=== PATIENT | male | born 1990 | race Caucasian/White ===

== ENCOUNTER 2018-10-27 11:25 | Emergency (ER) | payer BC ==
[2018-10-27] MEDS ORDERED: TRAZODONE50 MG PO (11:35)
[2018-10-27] MEDS ORDERED: WELLBUTRIN SR150 MG PO (11:35)
[2018-10-27] MEDS ORDERED: BENAZEPRIL5 MG PO (11:35)
[2018-10-27] MEDS ORDERED: BENAZEPRIL40 M1 PO (12:05)
[2018-10-27] MEDS ORDERED: BUPROPION HCL300 MG PO (12:06)
[2018-10-27] MEDS ORDERED: TRAMADOL HYDROC50 MG PO (12:27)
[2018-10-27] MEDS ORDERED: MEDDOSEPAK PO (12:27)
[2018-10-27 12:30] VITALS: BP 175/98
== END 2018-10-27 12:32 | disposition home or self-care (01) | DRG 558 ==
LOC: ED 11:25
DX: M72.2 Plantar fascial fibromatosis (principal); I10 Essential (primary) hypertension

== ENCOUNTER 2019-08-16 19:32 | Emergency (ER) | payer MEDICAID ==
[~2019-08-16] VITALS: Ht 177.8 cm; Wt 183.6 kg
[~2019-08-16 19:32] MED LIST: BENAZEPRIL40 M1 PO; BENAZEPRIL5 MG PO; BUPROPION HCL300 MG PO; MEDDOSEPAK PO; TRAMADOL HYDROC50 MG PO; TRAZODONE50 MG PO; WELLBUTRIN SR150 MG PO
[2019-08-16] MEDS ORDERED: HYDROCHLOROT12.5 MG PO (20:37)
[2019-08-16] MEDS ORDERED: VOLTAREN - GENE75 MG PO (21:55)
[2019-08-16 22:17] VITALS: BP 144/79
== END 2019-08-16 22:17 | disposition home or self-care (01) | DRG 552 ==
LOC: ED 19:32
DX: M54.5 Low back pain (principal); G57.12 Meralgia paresthetica, left lower limb; I10 Essential (primary) hypertension

== ENCOUNTER 2019-08-30 14:24 | Emergency (ER) | payer MEDICAID ==
[~2019-08-30] VITALS: Ht 177.8 cm; Wt 182.0 kg
[~2019-08-30 14:24] MED LIST changes: +HYDROCHLOROT12.5 MG PO; +VOLTAREN - GENE75 MG PO
[2019-08-30] MEDS ORDERED: FLEXERIL PO (16:38)
[2019-08-30] MEDS ORDERED: NAPROXEN500 MG PO (16:38)
[2019-08-30 16:58] VITALS: BP 159/88
== END 2019-08-30 17:09 | disposition home or self-care (01) | DRG 552 ==
LOC: ED 14:24
DX: M54.42 Lumbago with sciatica, left side (principal); I10 Essential (primary) hypertension

== ENCOUNTER 2021-01-05 14:36 | Emergency (ER) | payer OTHER ==
[~2021-01-05] VITALS: Ht 177.8 cm; Wt 152.0 kg
[~2021-01-05 14:36] MED LIST changes: +FLEXERIL PO; +NAPROXEN500 MG PO
[2021-01-05 16:44] LABS: HEMATOCRIT 42.5 % (39.0-50.0); HEMOGLOBIN 13.8 g/dl (14.0-18.0); IMMATURE GRANULOCYTES 0.1 % (0.0-5.0); MEAN CELL VOLUME 91.4 fL CALC (80.0-100.0); MEAN CORPUSCULAR HGB 29.7 pG CALC (26.0-32.0); MEAN CORPUSCULAR HGB CONC 32.5 g/dL CAL (32.0-36.0); NEUT# 6.86 thou/uL (1.82-7.42); RED BLOOD COUNT 4.65 mill/uL (4.70-6.10); RED CELL DISTRI WIDTH 12.7 % (11.5-15.5)
[2021-01-05 17:13] LABS: ALBUMIN 4.5 g/dL (3.2-5.0); ALKALINE PHOSPHATASE 63 u/l (38-126); ANION GAP 15 (6-22 (CALC)); BILIRUBIN, TOTAL 0.8 mg/dL (0.0-1.4); BUN 16 mg/dL (9-20); BUN/CREATININE RATIO 16 (12-20 (CALC)); CARBON DIOXIDE 28 mmol/l (22-30); CHLORIDE 100 mmol/l (95-108); GFR > 60 ML/MIN (>=60 (CALC)); GFR FOR AFR.AMER. > 60 ML/MIN (>=60 (CALC)); POTASSIUM 4.1 mmol/l (3.5-5.1); SGOT/AST 39 u/l (17-59); SODIUM 139 mmol/l (137-146); TOTAL PROTEIN 8.1 g/dL (6.3-8.2)
[2021-01-05] MEDS ORDERED: CLEOCIN150 M1 PO (18:11)
[2021-01-05] MEDS ORDERED: TORADOL PO (18:11)
[2021-01-05 19:10] VITALS: BP 150/78
== END 2021-01-05 19:10 | disposition home or self-care (01) ==
LOC: ED 14:36
PROVIDERS: Emergency Medicine
DX: L03.116 Cellulitis of left lower limb (principal); L02.612 Cutaneous abscess of left foot; I10 Essential (primary) hypertension; F32.9 Major depressive disorder, single episode, unspecified; Z20.822 Contact with and (suspected) exposure to COVID-19

== ENCOUNTER 2021-08-29 19:52 | Emergency (ER) | payer OTHER ==
[~2021-08-29] VITALS: Ht 177.8 cm; Wt 159.0 kg
[~2021-08-29 19:52] MED LIST changes: +CLEOCIN150 M1 PO; +TORADOL PO
[2021-08-29 21:41] LABS: HEMATOCRIT 41.3 % (39.0-50.0); HEMOGLOBIN 13.7 g/dl (14.0-18.0); IMMATURE GRANULOCYTES 0.1 % (0.0-5.0); MEAN CELL VOLUME 90.4 fL CALC (80.0-100.0); MEAN CORPUSCULAR HGB CONC 33.2 g/dL CAL (32.0-36.0); NEUT# 4.94 thou/uL (1.82-7.42); RED BLOOD COUNT 4.57 mill/uL (4.70-6.10); RED CELL DISTRI WIDTH 12.9 % (11.5-15.5)
[2021-08-29 21:44] VITALS: BP 184/114
[2021-08-29 21:52] LABS: ALBUMIN 4.1 g/dL (3.2-5.0); ALKALINE PHOSPHATASE 68 u/l (38-126); ANION GAP 11 (6-22 (CALC)); BILIRUBIN, TOTAL 0.5 mg/dL (0.0-1.4); BUN 14 mg/dL (9-20); BUN/CREATININE RATIO 16 (12-20 (CALC)); CARBON DIOXIDE 28 mmol/l (22-30); CHLORIDE 103 mmol/l (95-108); CREATININE 0.9 mg/dL (0.7-1.3); GFR FOR AFR.AMER. > 60 ML/MIN (>=60 (CALC)); GFR OTHER RACES > 60 ML/MIN (>=60 (CALC)); POTASSIUM 3.5 mmol/l (3.5-5.1); SGOT/AST 43 u/l (17-59); SODIUM 139 mmol/l (137-146); TOTAL PROTEIN 7.7 g/dL (6.3-8.2)
[2021-08-29 22:01] VITALS: BP 162/93
[2021-08-29 22:15] VITALS: BP 159/92
[2021-08-29] MEDS ORDERED: NAPROXEN500 MG PO (22:19)
[2021-08-29] MEDS ORDERED: CLONIDINE0.1 MG PO (22:19)
[2021-08-29 22:37] VITALS: BP 159/92
== END 2021-08-29 22:37 | disposition home or self-care (01) ==
LOC: ED 19:52
PROVIDERS: Emergency Medicine
DX: M79.672 Pain in left foot (principal); M79.671 Pain in right foot; I10 Essential (primary) hypertension; E66.9 Obesity, unspecified; F32.A Depression, unspecified

== ENCOUNTER 2022-02-09 11:40 | Emergency (ER) | payer OTHER ==
[~2022-02-09] VITALS: Ht 177.8 cm; Wt 163.0 kg
[~2022-02-09 11:40] MED LIST changes: +CLONIDINE0.1 MG PO
[2022-02-09] MEDS ORDERED: NORVASC5 M1 PO (13:28)
[2022-02-09] MEDS ORDERED: BENAZEPRIL HCL/1 TA1 PO (13:29)
[2022-02-09 15:43] VITALS: BP 183/115
[2022-02-10] MEDS ORDERED: VOLTAREN75 MG PO (23:59)
== END 2022-02-09 15:40 | disposition left against medical advice (07) | DRG 951 ==
LOC: ED 11:40 → LWOBS 15:40
DX: Z53.21 Procedure and treatment not carried out due to patient leaving prior to being seen by health care provider (principal)

== ENCOUNTER 2022-02-10 22:51 | Emergency (ER) | payer OTHER ==
[~2022-02-10] VITALS: Ht 177.8 cm; Wt 154.0 kg
[~2022-02-10 22:51] MED LIST changes: +BENAZEPRIL HCL/1 TA1 PO; +NORVASC5 M1 PO
[2022-02-10 23:04] VITALS: BP 147/100
[2022-02-10 23:16] VITALS: BP 143/86
[2022-02-10] MEDS ORDERED: VOLTAREN75 MG PO (23:59)
[2022-02-11 00:01] VITALS: BP 146/96
== END 2022-02-11 00:06 | disposition home or self-care (01) ==
LOC: ED 22:51
DX: M72.2 Plantar fascial fibromatosis (principal); I10 Essential (primary) hypertension; F32.A Depression, unspecified

== ENCOUNTER 2022-08-31 22:36 | Emergency (ER) | payer OTHER ==
[~2022-08-31] VITALS: Ht 177.8 cm; Wt 132.7 kg
[~2022-08-31 22:36] MED LIST changes: +VOLTAREN75 MG PO
[2022-08-31 22:47] VITALS: BP 171/117
[2022-08-31 23:01] VITALS: BP 158/97
[2022-08-31 23:16] VITALS: BP 158/105
[2022-08-31 23:31] VITALS: BP 156/99
[2022-08-31] MEDS ORDERED: NORVASC PO (23:59)
[2022-08-31] MEDS ORDERED: VOLTAREN75 MG PO (23:59)
[2022-09-01 00:01] VITALS: BP 169/101
[2022-09-01 00:16] VITALS: BP 159/102
[2022-09-01 00:20] VITALS: BP 159/102
[2022-09-02] MEDS ORDERED: DICLOFENAC75 MG PO (14:15)
== END 2022-09-01 00:29 | disposition home or self-care (01) ==
LOC: ED 22:36
DX: M79.672 Pain in left foot (principal); M79.671 Pain in right foot; I10 Essential (primary) hypertension; F32.A Depression, unspecified

== ENCOUNTER 2023-10-15 05:43 | Day surgery (SDC) | payer OTHER ==
[~2023-10-15] VITALS: Ht 172.7 cm; Wt 172.4 kg
[~2023-10-15 05:43] MED LIST changes: +AMLODIPINE BESY10 MG PO; +AMOX/K CLAV875 M1 PO; +CLONIDINE HCL0.1 MG PO; +DICLOFENAC75 MG PO; +FLUCONAZOLE200 MG PO; +NORVASC PO; +PROTONIX40 M2 PO
[2023-10-15] MEDS ORDERED: SODIUM CHLORIDE 0.9% 10 ML SYR ONE (06:25)
[2023-10-15] MEDS ORDERED: MELOXICAM5 MG (06:40)
[2023-10-15] MEDS ORDERED: METHOCARBAMOL500 MG PO (06:40)
[2023-10-15] MEDS ORDERED: TRIAMCINOLONE ACETONIDE 40 MG/ML ML ONE (06:59)
[2023-10-15] MEDS ORDERED: LIDOCAINE HCL 1% (10MG/ML) 100 MG/10 ML MDV ONE (07:00)
[2023-10-15] MEDS ORDERED: BUPIVACAINE HCL PF 0.5 % 50 MG/10 ML SDV ONE (07:00)
[2023-10-15 07:43] VITALS: BP 123/73
== END 2023-10-15 08:00 | disposition home or self-care (01) ==
LOC: ORM 05:43
PROVIDERS: ATTEND Student in an Organized Health Care Education/Training Program
DX: M54.9 Dorsalgia, unspecified (principal); M54.89 Other dorsalgia; M79.18 Myalgia, other site; G89.4 Chronic pain syndrome; M46.1 Sacroiliitis, not elsewhere classified
CPT/HCPCS: J3301